=== PATIENT | male | born 1935 | race Caucasian/White ===

== ENCOUNTER 2016-04-16 19:23 | Observation (INO) | payer OTHER, MEDICARE ==
[~2016-04-16] VITALS: Ht 152.4 cm; Wt 65.8 kg
--- NOTE | 2016-04-16 19:29 | NUR ---
PT BIBA FROM HOME C/O MALAISE "UNABLE TO GET OUT OF BED" SINCE THIS AM. "I USED A PEE BOTTLE AND I HAD TO BRACE MYSELF AGAINST THE BED" "I FELT LIKE I WAS GOING TO PASS OUT IF I TRIED TO WALK" +NAUSEA. DENIES VOMITTING/DIARHEA. IS NIDDM. FINGERSTICK BY EMS 190'S. DENIES CHEST PAIN, DENIES SOB. PAIN ON PALPATION TO MID ABD/RT SIDE. SKIN WARM AND DRY. PT STATES HE DID NOT EAT WELL TODAY, DID DRINK SOME WATER AND GINGERALE TODAY. HAS PER HOSP 18G. LFA. MADHU RUIZ AT BEDSIDE TO BRENDA PT ON PT ARRIVAL TO ROOM.
--- NOTE | 2016-04-16 19:31 | ED AMS/SEIZURE/WEAK/DIZZY ---
See Addendum History of Present Illness General Chief Complaint: General Adult Stated Complaint: MALAISE, +NAUSEA Source: patient, old records, EMS Exam Limitations: no limitations Vital Signs & Intake/Output Vital Signs & Intake/Output Vital Signs Date Time Temp Pulse Resp B/P Pulse O2 O2 Flow FiO2 Ox Delivery Rate 04/16 2356 96.8 72 18 158/79 98 Room Air 04/16 2001 100 Room Air 04/16 1946 63 138/75 04/16 1927 96.0 61 18 185/90 100 Room Air ED Intake and Output 04/17 0000 04/16 1200 Intake Total 2000 Output Total Balance 1999 Intake, IV 1999 Intake, Oral 0 Patient 145 lb Weight Allergies Coded Allergies: aspirin (R/T [facility] OF BLEEDING ULCERS 04/16/16) Reconcile Medications Meclizine HCl 25 MG TABLET 1 TAB PO TIDPRN PRN DIZZINESS Ondansetron (Zofran Odt) 4 MG TAB.RAPDIS 1 TAB SL TID PRN NAUSEA Triage Nurses Notes Reviewed? yes Onset: Abrupt Duration: day(s): (1), constant Timing: recent history Injury Environment: home Severity: moderate Severity Numbers: 7 No Modifying Factors: none Associated Symptoms: NAUSEA HPI: This 80-year-old male with history of hypertension diabetes presents emergency room brought in by ambulance complaining of generalized weakness and feeling lightheaded as though he was going to pass out since waking this morning. The patient has complained of intermittent nausea denies vomiting diarrhea he had a normal bowel movement today no black or bloody stools. No chest pain no room spinning dizziness. He denies history of similar episodes in the past. The patient denies any complaints at this time other than feeling lightheaded. He denies any recent change in his diet. He denies tobacco or alcohol use. There is no fever no chills no cough congestion and rhinorrhea (JOSEPH ZUNIGA) Past History Travel History Traveled to [place] past 21 day No Medical History Any Pertinent Medical History? see below for history Cardiovascular: hypertension Endocrine: diabetes Surgical History Surgical History: non-contributory Psychosocial History Who do you live with Spouse What is your primary language Gambian Family History Hx Contributory? No (JOSEPH ZUNIGA) Review of Systems Review of Systems Constitutional: Reports: see HPI. All Other Systems: Reviewed and Negative Comments Review of systems: See HPI, All other systems negative. Constitutional, no chills no fever, no malaise HEENT: No visual changes no sore throat no congestion, no ear pain Cardiovascular: No chest pain , no palpitation , no orthopnea no ankle swelling Skin, no rashes, no change in skin Respiratory: No dyspnea no cough no sputum no hemoptysis GI: nausea no vomiting, no diarrhea, no bloating/constipation : No dysuria No hematuria, no frequency Muscle skeletal: No joint pain, no back pain, no neck pain, Neurologic: No numbness no confusion, no headache Psych: No stress Heme/endocrine: No bruising no bleeding Immunology: No lymphadenopathy (JOSEPH ZUNIGA) Physical Exam Physical Exam General Appearance: well developed/nourished, alert, awake Comments: Well-developed well-nourished person in no acute distress HEENT: Normal EENT exam; PERRL, EOMI no nystagmus. HEAD is atraumatic. moist mucous membranes. Neck: Supple, normal range of motion and no bruit Back: Nontender, Full range of motion Cardiovascular: Regular rate and rhythms no murmurs rubs Respiratory: Chest nontender.There were no bony deformities, no asymmetry. No respiratory distress. Patient speaking in full complete sentences. Breath sounds clear to auscultation bilaterally: NO W/R/R Abdomen: Soft, nontender nondistended, no appreciable organomegaly. Normal bowel sounds. No rebound/guarding, No appreciable enlargement of the abdominal aorta, No ascites. Extremity: No edema, full range of motion of extremities, normal and equal pulses bilaterally, 5 out of 5 strength noted to bilateral upper and lower extremities Neuro: Alert oriented x3, motor sensory normal, cranial nerves II through XII grossly intact. There were no obvious focal neurologic abnormalities. Skin: No appreciable rash on exposed skin, skin is warm and dry. Psych: Mood and affect is normal, memory and judgment is normal. Core Measures ACS in differential dx? Yes CVA/TIA Diagnosis: No Severe Sepsis Present: No Septic Shock Present: No (JOSEPH ZUNIGA) Progress Differential Diagnosis: arrythmia, alcohol intoxication, anemia, benign positional vertigo, CVA/stroke, dehydration, electrolyte imbalance, GI bleed, hypoxia, pneumonia, postural hypotension, presyncope, sepsis, DIVERTICULITIS, VIRAL SYNDROME Plan of Care: Orders Procedure Date/time Status Regular Diet 04/17 B Active PT Evaluate & Treat 04/[address] in observation 04/17 7 Active Patient Data 04/17 7 Active Intake & Output 04/16 2000 Active Saline Lock 04/16 1927 Active MISTAKE 04/16 1927 Active Telemetry/Senior Safety Management Consultant 04/16 1927 Active RAPID VIRAL INFLUENZA A 04/16 1927 Complete TROPONIN LEVEL 04/16 1927 Complete COMPREHENSIVE METABOLIC PANEL 04/16 1927 Complete CBC WITHOUT DIFFERENTIAL 04/16 1927 Complete EKG 04/16 1927 Active Laboratory Tests 04/16/162007: Anion Gap 11, Estimated GFR 49 L, BUN/Creatinine Ratio 20.7, Glucose 178 H, Calcium 9.3, Total Bilirubin 1.8 H, AST 23, ALT 37, Alkaline Phosphatase 93, Troponin I < 0.01, Total Protein 6.3, Albumin 3.9, Globulin 2.4, Albumin/ Globulin Ratio 1.6, CBC w Diff NO MAN DIFF REQ, RBC 4.25 L, MCV 90.9, MCH 30.9, RDW 13.3, MPV 7.9, Gran % 79.7 H, Lymphocytes % 11.7 L, Monocytes % 6.0, Eosinophils % 2.2, Basophils % 0.4, Absolute Granulocytes 6.8 H, Absolute Lymphocytes 1.0 L, Absolute Monocytes 0.5, Absolute Eosinophils 0.2, Absolute Basophils 0, PUBS MCHC 34.0 Labs ordered old records reviewed orthostatics are negative IV fluids Zofran 4 IV ordered chest x-ray ordered Case discussed with Dr. Macedo 04/16/2016 10:10:14 PM I discussed the patient at length and his family all his lab results upon sitting the patient up he states that he is feeling nauseous he denies dizziness or lightheadedness, CAT scan ordered Case discussed with Dr. Ohara. 00:10 on repeat eval pt reports now that he has had vertigo in the past, and states this feels similar, but feels improved, pt attempted ambulation with shuffling gait, d/w the pt and his son plan of care pt is a fall risk, premature discharge would be medically harmful which they are in agreement with. (HEIKE LEUNG,JOSEPH) Diagnostic Imaging: Viewed by Me: Radiology Read, CT Scan. Discussed w/RAD: Radiology Read, CT Scan. Radiology Impression: PATIENT: EZEQUIEL RITTER PRESENT AGE: 80 PATIENT ACCOUNT NO: [id number] : 37 LOCATION: ER ORDERING PHYSICIAN: JOSEPH LEUNG SERVICE DATE: 04/16/16 EXAM TYPE: RAD - XRY-PORTABLE CHEST XRAY EXAMINATION: XR PORTABLE CHEST CLINICAL INFORMATION: Weakness. COMPARISON: Chest x-ray 09/07/2009 TECHNIQUE: Portable AP portable view of the chest was obtained. 7:35 PM FINDINGS: No significant abnormality is noted involving the heart, lungs, mediastinum, bony thorax or soft tissues. IMPRESSION: Unremarkable examination. DICTATED BY: ANA MARIA MORELOS MD DATE/TIME DICTATED:04/16/162019 SOURCING SPECIALIST:DANIE DATE/TIME TRANSCRIBED:04/16/162019 CONFIDENTIAL, DO NOT COPY WITHOUT APPROPRIATE AUTHORIZATION. <Electronically signed in Other Vendor System> SIGNED BY: ANA MARIA MORELOS MD 04/16/162023, PATIENT: EZEQUIEL RITTER PRESENT AGE: 80 PATIENT ACCOUNT NO: [id number] : 37 LOCATION: ER ORDERING PHYSICIAN: JOSEPH LEUNG SERVICE DATE: 04/16/16 EXAM TYPE: CAT - CT ABD & PELVIS W/O IV CONTRAS EXAMINATION: CT ABDOMEN AND PELVIS WITHOUT CONTRAST CLINICAL INFORMATION: Left lower quadrant abdominal pain. COMPARISON: MRI of abdomen 12/05/2010. CT abdomen and pelvis 11/29/2010. Renal ultrasound . TECHNIQUE: Multidetector volumetric imaging was performed from the superior aspect of the liver through the pubic symphysis. Sagittal and coronal reformatted images were obtained on the technologist's workstation. No oral or intravenous contrast. DLP: 229.83 mGy-cm FINDINGS: LUNG BASES: The visualized lung bases are unremarkable. LIVER, GALLBLADDER, AND BILIARY TREE: 1 cm hypodensity anterior left lobe of liver, sharply marginated, image 74 (3). This was not evident on the CT scan of 11/29/2010. Not seen on prior MR exam. No intrahepatic bile duct dilatation. Multiple small calcified gallstones layering dependently in the gallbladder. No edema around the gallbladder. No bile duct dilatation. PANCREAS: 3 x 1.7 cm hypodensity in the mid body of the pancreas. This is unchanged since MR of 12/05/[address] abdomen 11/29/2010. This was defined as a cyst in the pancreas on the prior exam. It was better demonstrated though on the prior CT scan and MR. SPLEEN: Unremarkable ADRENAL GLANDS: 1.6 cm hypodense nodule in the left adrenal gland. Density measurement of 7 Hounsfield units consistent with adenoma. This is unchanged since the prior CT scan and MRI of 2010. The right adrenal gland is normal. KIDNEYS AND URETERS: Stable right renal parapelvic cyst measuring 6.8 cm AP. 1.6 cm parapelvic cyst in lower pole of left kidney 4 mm nonobstructive calculus in the mid lower pole of the right kidney. BLADDER: Unremarkable. GASTROINTESTINAL TRACT: No acute change. No bowel obstruction. No bowel wall thickening or edema. There are scattered diverticula of the left colon but no diverticulitis. The appendix is normal. The small bowel loops are normal. ABDOMINAL WALL: No significant hernia is appreciated. LYMPH NODES: Normal. VASCULAR: Scattered vascular wall calcifications of the aorta and iliac vessels. PELVIC VISCERA: Calcifications within the prostate. Prostate measures 4.4 cm transverse. OSSEOUS STRUCTURES: Multilevel degenerative change of the spine with disc height narrowing, endplate spurs and facet joint arthrosis. IMPRESSION: 1. No acute change of abdomen or pelvis. 2. 1 cm hypodense lesion in the anterior left lobe of liver not seen on prior exams, statistically likely a small hepatic cyst. 3. Stable left adrenal adenoma. 4. Cholelithiasis. No bile duct dilatation. 5. Stable pancreatic cyst. 6. Bilateral parapelvic cysts of kidneys, larger on right than left. Nonobstructive stone mid lower pole of right kidney. 7. Mild diverticulosis. No acute change of the bowel. DICTATED BY: ANA MARIA MORELOS MD DATE/TIME DICTATED:04/16/162239 SOURCING SPECIALIST:DANIE DATE/TIME TRANSCRIBED:04/16/162239 CONFIDENTIAL, DO NOT COPY WITHOUT APPROPRIATE AUTHORIZATION. <Electronically signed in Other Vendor System> SIGNED BY: ANA MARIA MORELOS MD 04/17/16 0000 Initial ED EKG: NORMAL SINUS AT 60, LEFT ONE OH BRANCH BLOCK, NO ACUTE st SEGMENT CHANGES OR WAXES Prior EKG: unchanged (08/2009) Hand-Off Endorsed To: LOTTIE PRASAD,TANGELA Comer Endorsed Time: 010 Pending: CT (JOSEPH ZUNIGA) Departure Departure Time of Disposition: 0004 Disposition: OTHER PYSCH Condition: Stable Referrals: YUVAL PRASAD,FOX Ku (PCP/Family) Departure Forms: Customer Survey General Discharge Information Prescriptions: Current Visit Scripts Ondansetron (Zofran Odt) 1 TAB SL TID PRN NAUSEA #10 TAB Meclizine HCl 1 TAB PO TIDPRN PRN DIZZINESS #12 TAB Observation Note Spoke With: TANGELA OHARA MD Place Patient In: ED Observation Rationale for Observation: My rational for observation is as follows patient with unsteady gait we will continue to monitor IV fluids meclizine, possible PT consult in the morning premature discharge would BE medically harmful as he is a fall risk (JOSEPH ZUNIGA) Departure Clinical Impression Primary Impression: Dehydration Secondary Impressions: Adrenal adenoma, Diverticulosis, Pancreatic cyst, Renal cyst, Vertigo PA/NEONATAL SOCIAL WORKER Co-Sign Statement Statement: ED Attending supervision documentation- [x] I saw and evaluated the patient. I have also reviewed all the pertinent lab results and diagnostic results. I agree with the findings and the plan of care as documented in the PA's/NEONATAL SOCIAL WORKER's documentation. see obs note. [] I have reviewed the ED Record and agree with the PA's/NEONATAL SOCIAL WORKER's documentation. [] Additions or exceptions (if any) to the PAs/NEONATAL SOCIAL WORKER's note and plan are summarized below: [] (LOTTIE PRASAD,TANGELA Comer) ED Attending Observation Initial Observation Note: I have seen and personally examined EZEQUIEL RITTER on 04/17/16 at 0632. I agree with the current emergency department documentation. The disposition (admission or discharge) is uncertain at this time, he needs a period of observation for the following reason(s): at 6:31am... he is feeling well. He ambulated without problem. He has stable labs and a benign exam. He expresses the wish to go home. He is safe and stable for discharge. The ED Nurse caring for this patient has been personally informed as to what the patient is being observed for. Observation Re-Evaluation: I have reevaluated EZEQUIEL RITTER on 04/17/16 at 0631. The physical findings that support the continued need to observe this patient include .... at 6:31am... he is feeling well. He ambulated without problem. He has stable labs and a benign exam. He expresses the wish to go home. He is safe and stable for discharge. Observation Discharge: I have reevaluated EZEQUIEL RITTER on 04/17/16 at 0632. The patient is: ([x]): Stable for discharge (): To be admitted to Nursing Floor (): To be placed in Observation on Nursing Floor (): For transfer to other facility The patient was being observed for vertigo and weakness. As a result of that observation, I have determined . at 6:31am... he is feeling well. He ambulated without problem. He has stable labs and a benign exam. He expresses the wish to go home. He is safe and stable for discharge. (LOTTIE PRASAD,TANGELA Comer)
--- NOTE | 2016-04-16 19:35 | NUR ---
EKG DONE. PORT CXR BEING DONE
--- NOTE | 2016-04-16 19:47 | NUR ---
PT RECEIVED 4 MG ZOFRAN IV BY EMS. ORTHOSTATICS DONE DOCUMENTED. PT C/O FATIGUE AND WEAKNESS
--- NOTE | 2016-04-16 20:00 | NUR ---
FLU SWAB DONE AND SENT TO LAB
--- NOTE | 2016-04-16 20:07 | NUR ---
BLOOD SENT TO THE LAB SST,BLUE,LAV
--- NOTE | 2016-04-16 20:24 | RADIOLOGY REPORT ---
EXAMINATION: XR PORTABLE CHEST CLINICAL INFORMATION: Weakness. COMPARISON: Chest x-ray 09/07/2009 TECHNIQUE: Portable AP portable view of the chest was obtained. 7:35 PM FINDINGS: No significant abnormality is noted involving the heart, lungs, mediastinum, bony thorax or soft tissues. IMPRESSION: Unremarkable examination.
[2016-04-16 20:35] LABS: ABSOLUTE BASOPHIL COUNT 0 /CUMM (0.0-0.2); ABSOLUTE EOSINOPHIL COUNT 0.2 /CUMM (0.0-0.7); ABSOLUTE GRANULOCYTE CT 6.8 /CUMM (1.4-6.5); ABSOLUTE MONOCYTE COUNT 0.5 /CUMM (0.10-0.60); BASOPHIL % 0.4 % (0.0-2.0); EOSINOPHIL % 2.2 % (0-5); GRANULOCYTE % 79.7 % (42.2-75.2); HEMATOCRIT 38.6 % (42-52); MEAN CORPUSCULAR HGB 30.9 PG (27.0-31.0); MEAN CORPUSCULAR VOLUME 90.9 FL (80.0-94.0); MEAN PLATELET VOLUME 7.9 FL (7.4-10.4); PLATELET COUNT 254 /CUMM (130-400); RBC DISTRIBUTION WIDTH 13.3 % (11.5-14.5); RED BLOOD CELL CT 4.25 /CUMM (4.70-6.10); WHITE BLOOD CELL COUNT 8.6 /CUMM (4.8-10.8)
--- NOTE | 2016-04-16 21:22 | NUR ---
NS CONTINUES TO INFUSE. FAMILY AT BEDSIDE. PT WITH NO COMPLAINTS
--- NOTE | 2016-04-16 22:20 | NUR ---
PT C/O CONTINUED NAUSEA. MEDICATED WITH 4 MG ZOFRAN IV PER EMAR. PT TO CT VIA STRETCHER
--- NOTE | 2016-04-16 23:57 | NUR ---
PT STATES "I FELT JUST LIKE THIS WHEN I HAD VERTIGO" PT STATES HE "FEELS WORSE" AFTER SHAKING HIS HEAD
--- NOTE | 2016-04-17 | CT SCAN REPORT ---
EXAMINATION: CT ABDOMEN AND PELVIS WITHOUT CONTRAST CLINICAL INFORMATION: Left lower quadrant abdominal pain. COMPARISON: MRI of abdomen 12/05/2010. CT abdomen and pelvis 11/29/2010. Renal ultrasound 06/14/2013. TECHNIQUE: Multidetector volumetric imaging was performed from the superior aspect of the liver through the pubic symphysis. Sagittal and coronal reformatted images were obtained on the technologist's workstation. No oral or intravenous contrast. DLP: 229.83 mGy-cm FINDINGS: LUNG BASES: The visualized lung bases are unremarkable. LIVER, GALLBLADDER, AND BILIARY TREE: 1 cm hypodensity anterior left lobe of liver, sharply marginated, image 74 (3). This was not evident on the CT scan of 11/29/2010. Not seen on prior MR exam. No intrahepatic bile duct dilatation. Multiple small calcified gallstones layering dependently in the gallbladder. No edema around the gallbladder. No bile duct dilatation. PANCREAS: 3 x 1.7 cm hypodensity in the mid body of the pancreas. This is unchanged since MR of 12/05/[address] abdomen 11/29/2010. This was defined as a cyst in the pancreas on the prior exam. It was better demonstrated though on the prior CT scan and MR. SPLEEN: Unremarkable ADRENAL GLANDS: 1.6 cm hypodense nodule in the left adrenal gland. Density measurement of 7 Hounsfield units consistent with adenoma. This is unchanged since the prior CT scan and MRI of 2010. The right adrenal gland is normal. KIDNEYS AND URETERS: Stable right renal parapelvic cyst measuring 6.8 cm AP. 1.6 cm parapelvic cyst in lower pole of left kidney 4 mm nonobstructive calculus in the mid lower pole of the right kidney. BLADDER: Unremarkable. GASTROINTESTINAL TRACT: No acute change. No bowel obstruction. No bowel wall thickening or edema. There are scattered diverticula of the left colon but no diverticulitis. The appendix is normal. The small bowel loops are normal. ABDOMINAL WALL: No significant hernia is appreciated. LYMPH NODES: Normal. VASCULAR: Scattered vascular wall calcifications of the aorta and iliac vessels. PELVIC VISCERA: Calcifications within the prostate. Prostate measures 4.4 cm transverse. OSSEOUS STRUCTURES: Multilevel degenerative change of the spine with disc height narrowing, endplate spurs and facet joint arthrosis. IMPRESSION: 1. No acute change of abdomen or pelvis. 2. 1 cm hypodense lesion in the anterior left lobe of liver not seen on prior exams, statistically likely a small hepatic cyst. 3. Stable left adrenal adenoma. 4. Cholelithiasis. No bile duct dilatation. 5. Stable pancreatic cyst. 6. Bilateral parapelvic cysts of kidneys, larger on right than left. Nonobstructive stone mid lower pole of right kidney. 7. Mild diverticulosis. No acute change of the bowel.
[2016-04-17] MEDS ORDERED: ZOFRAN ODT4 M1 SL (00:21)
[2016-04-17] MEDS ORDERED: MECLIZINE HCL25 MG PO (00:21)
--- NOTE | 2016-04-17 01:25 | CT SCAN REPORT ---
EXAMINATION: CT HEAD WITHOUT CONTRAST CLINICAL INFORMATION: Vertigo COMPARISON: MRI 08/25/2013 TECHNIQUE: Contiguous axial imaging was performed from the skull base to vertex without intravenous administration of contrast. DLP: 529.16 mGy-cm FINDINGS: There is no evidence of acute intracranial hemorrhage or territorial infarction. No abnormal mass effect or midline shift is seen. [place] to white matter differentiation is well preserved. No extra-axial fluid collections are identified. The ventricles are normal in size. There is mild periventricular white matter hypoattenuation consistent with chronic small vessel ischemic disease. The osseous structures and soft tissues are normal. Small fluid level is noted in the right sphenoid sinus. The mastoid air cells are well-aerated. IMPRESSION: No acute intracranial pathology.
--- NOTE | 2016-04-17 01:27 | NUR ---
25 MG ANTIVERT ORDERED
--- NOTE | 2016-04-17 03:30 | NUR ---
PT SLEEPING. CALL RODAS IN REACH
--- NOTE | 2016-04-17 05:54 | NUR ---
PT CONTINUES TO SLEEP. CALL RODAS IN REACH
--- NOTE | 2016-04-17 06:29 | NUR ---
MD TAFOYA TO BEDSIDE FOR REEVAL.
[2016-04-17 06:43] VITALS: BP 154/91
--- NOTE | 2016-04-17 07:11 | NUR ---
PT AMBULATING WITHOUT DIFFICULTY, STATES FEELS MUCH BETTER. CLEARED FOR DC BY DR TAFOYA IV ACCESS DC'D PT DISCHARGED HOME WITH RX'S AND INSTRUCTIONS
== END 2016-04-17 07:12 | disposition home health service (06) ==
LOC: ERH 19:23 → ERHI 04-17 00:08
PROVIDERS: Physician Assistant Medical; ADMIT Pediatrics
DX: E86.0 Dehydration (principal); I10 Essential (primary) hypertension; E11.9 Type 2 diabetes mellitus without complications; R11.0 Nausea; R53.1 Weakness; D35.02 Benign neoplasm of left adrenal gland; K57.90 Diverticulosis of intestine, part unspecified, without perforation or abscess without bleeding; K86.2 Cyst of pancreas; N28.1 Cyst of kidney, acquired; R42 Dizziness and giddiness
CPT/HCPCS: 74176; 87804; 87804-59; 93005; 93010; 96361; 96374; G0378; J2405